=== PATIENT | female | born 1960 | race Caucasian/White ===

== ENCOUNTER 2017-04-30 12:29 | Emergency (ER) | payer OTHER ==
[2017-04-30 12:45] VITALS: BP 146/86; PULSE 88; TEMP 98.4; BMI 64.3
[2017-04-30] MEDS ORDERED: DIPHTH,PERTUSS(ACELL),TET 0.5 ML DISP.SYRIN IM ONE (13:20)
--- NOTE | 2017-04-30 13:26 | PDOC ---
History of Present Illness - General Chief Complaint: Laceration Stated Complaint: LACERATION Time Seen by Provider: 04/30/17 13:00 History Source: Patient Exam Limitations: No Limitations - History of Present Illness Initial Comments: 04/30/17 13:21 56 yr female with laceration to the right lower leg after a mirror and a fridge fell on her leg. Pt states her left foot was twisted under her. no head trauma no loc. Timing/Duration: reports: just prior to arrival Severity: Yes: mild Location: reports: extremities (right lower leg ) Respiratory Risk Factors: reports: no cause identified Past History - Past Medical History Allergies/Adverse Reactions: Allergies Allergy/AdvReac Type Severity Reaction Status Date / Time Penicillins Allergy Unknown Verified 04/30/17 12:36 Cancer: Yes (stage 1 uterine) GI Disorders: Yes (OBESITY.) HTN: Yes Hypercholesterolemia: Yes Other medical history: B/L FLUID KNEE/ANKLE WATER RETENTION. - Surgical History Abdominal Surgery: Yes Appendectomy: Yes Cholecystectomy: Yes - Psycho/Social/Smoking Cessation Hx Anxiety: No Suicidal Ideation: No Smoking History: Never smoked Hx Alcohol Use: No Drug/Substance Use Hx: No Substance Use Type: None *Physical Exam - Vital Signs Last Vital Signs Temp Pulse Resp BP Pulse Ox 98.4 F 88 18 146/86 98 04/30/17 12:30 04/30/17 12:30 04/30/17 12:30 04/30/17 12:30 04/30/17 12:30 - Physical Exam General Appearance: Yes: Nourished, Obese HEENT: positive: EOMI, FRANSISCA Musculoskeletal: positive: Other (tender to left great toe , no deformity or swelling , FROM of the toe ) Extremity: positive: Normal Capillary Refill, Normal Range of Motion, Other ( right lower leg 3cmlinear laceration partial thickness ) Integumentary: positive: Normal Color, Dry, Warm Neurologic: positive: Fully Oriented, Alert, Normal Mood/Affect, Normal Response , Motor Strength 5/5 ED Treatment Course - RADIOLOGY Radiology Studies Ordered: Category Date Time Status FOOT-LEFT [RAD] Stat Radiology 04/30/17 13:21 Ordered LEG TIB/FIB-RIGHT [RAD] Stat Radiology 04/30/17 13:21 Ordered Medical Decision Making - Medical Decision Making 04/30/17 15:20 cc: laceration to lower leg will suture closed, update tetanus xrays to r/o fracture pt is ambulatory pt is morbidly obese with chronic lower leg edema wound sutured by the ER resident Dr.Jason Doran and supervised by 04/30/17 15:21 *DC/Admit/Observation/Transfer Diagnosis at time of Disposition: Laceration - Discharge Dispostion Disposition: HOME Condition at time of disposition: Improved - Referrals Referrals: STAFF,NOT ON [Primary Care Provider] - - Patient Instructions Printed Discharge Instructions: DI for Laceration Repair Additional Instructions: keep clean and dry remove the dressing in 24hrs and let the wound air dry suture removal in 7-10 days follow with your doctor in 2-3 days for a wound check take motrin or tylenol for pain as needed
--- NOTE | 2017-04-30 15:29 | PDOC ---
History of Present Illness <Michoacano Doran - Last Filed: 04/30/17 15:27> - General History Source: Patient Exam Limitations: No Limitations - History of Present Illness Initial Comments: 05/01/17 12:05 56 yr female with morbid obese with laceration to right lower leg. Pt was helping move a mirror and refridgerator and it fell on her leg. Pt states her left foot got trapped under her when she fell. Timing/Duration: reports: just prior to arrival Location: reports: extremities <Lelia Coughlin - Last Filed: 05/01/17 12:16> - General Chief Complaint: Laceration Stated Complaint: LACERATION Time Seen by Provider: 04/30/17 13:00 Past History - Past Medical History Cancer: Yes (stage 1 uterine) GI Disorders: Yes (OBESITY.) HTN: Yes Hypercholesterolemia: Yes Other medical history: B/L FLUID KNEE/ANKLE WATER RETENTION. - Surgical History Abdominal Surgery: Yes Appendectomy: Yes Cholecystectomy: Yes - Psycho/Social/Smoking Cessation Hx Anxiety: No Suicidal Ideation: No Smoking History: Never smoked Hx Alcohol Use: No Drug/Substance Use Hx: No Substance Use Type: None <Michoacano Doran - Last Filed: 04/30/17 15:27> - Past Medical History Other medical history: morbid obesity , chronic lower leg edema <Lelia Coughlin - Last Filed: 05/01/17 12:16> - Past Medical History Allergies/Adverse Reactions: Allergies Allergy/AdvReac Type Severity Reaction Status Date / Time Penicillins Allergy Unknown Verified 04/30/17 12:36 Review of Systems - Review of Systems Able to Perform ROS?: Yes Is the patient limited Faroese proficient: No Constitutional: No: Symptoms Reported HEENTM: No: Symptoms Reported Respiratory: No: Symptoms reported Cardiac (ROS): No: Symptoms Reported ABD/GI: No: Symptoms Reported Musculoskeletal: Yes: See HPI Integumentary: Yes: Symptoms Reported <Lelia Coughlin - Last Filed: 05/01/17 12:16> *Physical Exam - Vital Signs Last Vital Signs Temp Pulse Resp BP Pulse Ox 98.4 F 88 18 146/86 98 04/30/17 12:30 04/30/17 12:30 04/30/17 12:30 04/30/17 12:30 04/30/17 12:30 <Michoacano Doran - Last Filed: 04/30/17 15:27> - Vital Signs Last Vital Signs Temp Pulse Resp BP Pulse Ox 98.4 F 88 18 146/86 98 04/30/17 12:30 04/30/17 12:30 04/30/17 12:30 04/30/17 12:30 04/30/17 12:30 - Physical Exam General Appearance: Yes: Nourished, Appropriately Dressed, Obese HEENT: positive: EOMI, FRANSISCA Extremity: positive: Tender (left great toe, no deformity or swelling, nv intact ttp distal great toe. right lower leg mid tibia tender to touch ) Integumentary: positive: Other (lacertaion right lower leg, wheeping edema chronic bothe l;egs ) <Lelia Coughlin - Last Filed: 05/01/17 12:16> Procedures - Laceration/Wound Repair Right Anterior Leg Wound Length: 2.6 to 5.0 cm Wound Explored: clean, no foreign body present Wound's Depth, Shape: superficial, linear Irrigated w/ Saline: Yes Betadine Prep: Yes Anesthesia: 1% Lidocaine Amount of Anesthetic (ccs): 2 Wound Debrided: minimal Wound Repaired With: Sutures Suture Size/Type: 4:0, nylon Number of Sutures: 5 Layer Closure: Yes Sterile Dressing Applied: Yes Splint Applied: No Sling Applied: No <Michoacano Doran - Last Filed: 04/30/17 15:27> ED Treatment Course - Medications Given in the ED: ED Medications Discontinued Medications Generic Name Dose Route Start Last Admin Trade Name Freq PRN Reason Stop Dose Admin Diphtheria/Tetanus/Acell Pertussis 0.5 ml 04/30/17 13:20 04/30/17 13:30 Boostrix - IM 04/30/17 13:21 0.5 ml .ONCE ONE Administration <Michoacano Doran - Last Filed: 04/30/17 15:27> - RADIOLOGY Radiology Studies Ordered: Category Date Time Status FOOT-LEFT [RAD] Stat Radiology 04/30/17 13:21 Completed LEG TIB/FIB-RIGHT [RAD] Stat Radiology 04/30/17 13:21 Completed - Medications Given in the ED: ED Medications Discontinued Medications Generic Name Dose Route Start Last Admin Trade Name Freq PRN Reason Stop Dose Admin Diphtheria/Tetanus/Acell Pertussis 0.5 ml 04/30/17 13:20 04/30/17 13:30 Boostrix - IM 04/30/17 13:21 0.5 ml .ONCE ONE Administration <Lelia Coughlin - Last Filed: 05/01/17 12:16> Medical Decision Making - Medical Decision Making 05/01/17 12:14 cc: laceration right lower leg, bony tenderness, left great toe tender to tocuh will xray to r/o fracture update tetanus wound to be closed by the ER resident pt and the pt's family agree with the plan of care. all questions asked and answered. pt ambulatory at discharge. 05/01/17 12:15 <Lelia Coughlin - Last Filed: 05/01/17 12:16> *DC/Admit/Observation/Transfer <Michoacano Doran - Last Filed: 04/30/17 15:27> <Lelia Coughlin - Last Filed: 05/01/17 12:16> Diagnosis at time of Disposition: Laceration - Discharge Dispostion Disposition: HOME Condition at time of disposition: Improved - Referrals Referrals: STAFF,NOT ON [Primary Care Provider] - - Patient Instructions Printed Discharge Instructions: DI for Laceration Repair Additional Instructions: keep clean and dry remove the dressing in 24hrs and let the wound air dry suture removal in 7-10 days follow with your doctor in 2-3 days for a wound check take motrin or tylenol for pain as needed - Post Discharge Activity
== END 2017-04-30 16:42 | disposition home or self-care (01) ==
LOC: JERFT 12:29 → JER 12:29
PROC: 0HQKXZZ Repair Right Lower Leg Skin, External Approach (ICD-10-PCS; principal; 2017-04-30)
PROC: 3E0234Z Introduction of Serum, Toxoid and Vaccine into Muscle, Percutaneous Approach (ICD-10-PCS; 2017-04-30)
DX: S81.811A Laceration without foreign body, right lower leg, initial encounter (principal); Z85.42 Personal history of malignant neoplasm of other parts of uterus; I10 Essential (primary) hypertension; E78.00 Pure hypercholesterolemia, unspecified; R60.9 Edema, unspecified; E66.01 Morbid (severe) obesity due to excess calories; Z68.44 Body mass index [BMI] 60.0-69.9, adult
CPT/HCPCS: 73590-TC-RT; 73630-TC-LT; 90715; 99281-25